=== PATIENT | female | born 1995 | race Caucasian/White ===

== ENCOUNTER 2024-10-01 17:00 | Inpatient (IN) | payer OTHER ==
[~2024-10-01] VITALS: Ht 152.4 cm; Wt 50.0 kg
[~2024-10-01 17:00] MED LIST: ACET-2247 PO; MAGN-169 PO; OLAN10TA74 PO
[2024-10-01] MEDS ORDERED: ACETAMINOPHEN 325 MG TABLET PO PRN (18:15)
[2024-10-01] MEDS: LORazepam 2 MG/ML VIAL IM ONE (19:23)
[2024-10-01] MEDS: HALOPERIDOL LACTATE 5 MG/ML VIAL IM ONE (19:25)
[2024-10-01] MEDS: DiphenhydrAMINE HCL 50 MG/ML VIAL IM ONE (19:25)
[2024-10-01] MEDS: DOCUSATE SODIUM 100 MG CAPSULE PO SCH (20:15)
[2024-10-01 20:39] LABS: COVID AG,FIA SOURCE NASAL SWAB
[2024-10-01 20:59] LABS: SARS-COV2 (COVID) ANTIGEN,FIA Negative (Negative)
[2024-10-01] MEDS: HEPARIN SODIUM,PORCINE 5,000 UNITS/ML VIAL SQ SCH (23:46)
[2024-10-02 10:16] LABS: APPEARANCE,URINE CLEAR (CLEAR); BILIRUBIN,URINE NEGATIVE (NEGATIVE); COLOR,URINE LIGHT YELLOW (YELLOW); GLUCOSE, URINE (UA) NEGATIVE (NEGATIVE); KETONES,URINE TRACE mg/dL (NEGATIVE); LEUKOCYTE ESTERASE ,URINE NEGATIVE (NEGATIVE); NITRATE,URINE NEGATIVE (NEGATIVE); OCCULT BLOOD,URINE NEGATIVE (NEGATIVE); PH,URINE 6.5 (5.0-8.0); PH,URINE DRUG SCREEN 6.5 (5.0-8.0); PROTEIN,URINE TRACE mg/dL (NEGATIVE); SPECIFIC GRAVITIY, URINE 1.024 (1.003-1.030); UROBILINOGEN,URINE <=1.0 mg/dL (<=1.0)
[2024-10-02 10:23] LABS: ALCOHOL, URINE DRUG SCREEN NEGATIVE (NEGATIVE); AMPHET/METH SCREEN,URINE NEGATIVE (NEGATIVE); BARBITURATE SCREEN, URINE NEGATIVE (NEGATIVE); BENZODIAZEPINES SCREEN,URINE NEGATIVE (NEGATIVE); CANNABINOID SCREEN,URINE NEGATIVE (NEGATIVE); METHADONE SCREEN, URINE NEGATIVE (NEGATIVE); OPIATE SCREEN,URINE NEGATIVE (NEGATIVE); PHENCYCLIDINE SCREEN,URINE NEGATIVE (NEGATIVE)
[2024-10-02 11:17] LABS: COCAINE SCREEN,URINE NEGATIVE (NEGATIVE)
[2024-10-02 13:20] LABS: BASOPHILS % (AUTO) 0.4 % (0.0-2.0); EOSINOPHILS % (AUTO) 1.9 % (1.0-6.0); HEMATOCRIT 32.1 % (36-46); LYMPHOCYTES # (AUTO) 1.2 K/uL (1.0-4.8); LYMPHOCYTES % (AUTO) 26.6 % (22.0-44.0); MEAN CORPUSCULAR HEMOGLOBIN 29.6 pg (26.0-34.0); MEAN CORPUSCULAR HGB CONC 34.2 G/dL (31.0-37.0); MEAN CORPUSCULAR VOLUME 87 fL (80-100); MONOCYTES # (AUTO) 0.3 K/uL (0.1-1.0); MONOCYTES % (AUTO) 7.3 % (2.0-9.0); NEUTROPHILS % (AUTO) 63.8 % (40.0-70.0); PLATELET COUNT (AUTO) 246 K/uL (150-450); RED BLOOD CELL COUNT(AUTO) 3.72 MIL/uL (4.00-5.20); RED CELL DISTRIBUTION WIDTH 13.1 % (11.5-14.5); WHITE BLOOD COUNT (AUTO) 4.7 K/uL (4.5-11.0)
[2024-10-02 13:28] LABS: ANION GAP 11 mmol/L (8-16); CALCIUM, TOTAL 8.6 mg/dL (8.8-10.5); CARBON DIOXIDE 25 mmol/L (22-29); CHLORIDE 105 mmol/L (98-107); CREATININE 0.74 mg/dL (0.60-1.30); GLOMERULAR FILTR. RATE CALC > 60 mL/min (>60); GLUCOSE,RANDOM 99 mg/dL (70-110); POTASSIUM 4.1 mmol/L (3.5-5.1); SODIUM SERUM 141 mmol/L (136-145); UREA NITROGEN, BLOOD 11 mg/dL (7-18)
[2024-10-02 13:39] LABS: ALANINE AMINOTRANSFERASE 15 U/L (12-78); ALCOHOL, BLOOD (SERUM) < 3 mg/dL (0-10); ALKALINE PHOSPHATASE 60 U/L (46-116); ASPARTATE AMINOTRANSFERASE 17 U/L (15-37); BILIRUBIN,TOTAL 0.2 mg/dL (0.1-1.0); TOTAL PROTEIN, SERUM 6.1 g/dL (6.4-8.2)
[2024-10-02 19:10] VITALS: BP 113/77; PULSE 97; RESP 18; TEMP 98.4; O2SAT 100
[2024-10-02] MEDS: OLANZapine 5 MG TABLET PO SCH (20:30)
[2024-10-03 07:49] VITALS: BP 110/68; PULSE 85; RESP 20; TEMP 98.2; O2SAT 99
[2024-10-03] MEDS ORDERED: OLAN5TAB52 PO (12:47)
== END 2024-10-03 16:31 | DRG 885 ==
LOC: EMS 17:00 → EDH 18:08 → 6N 21:54
PROVIDERS: ADMIT Internal Medicine; ATTEND Internal Medicine
PROC: GZ56ZZZ Individual Psychotherapy, Supportive (ICD-10-PCS; principal; 2024-10-02)
DX: F20.9 Schizophrenia, unspecified (principal); Z20.822 Contact with and (suspected) exposure to COVID-19; F41.9 Anxiety disorder, unspecified; Y93.89 Activity, other specified; Y92.89 Other specified places as the place of occurrence of the external cause; Y99.8 Other external cause status; X58.XXXA Exposure to other specified factors, initial encounter; S91.101A Unspecified open wound of right great toe without damage to nail, initial encounter
CPT/HCPCS: 80048; 80076; 80307; 81003; 83735; 85025; 99285; G0480; J1200; J1630; J1644; J2060

== ENCOUNTER 2024-11-12 18:58 | Inpatient (IN) | payer OTHER ==
[~2024-11-12] VITALS: Ht 152.4 cm; Wt 60.0 kg
[~2024-11-12 18:58] MED LIST changes: -ACET-2247 PO; -MAGN-169 PO; -OLAN10TA74 PO; +OLAN5TAB52 PO
[2024-11-13] MEDS ORDERED: ACETAMINOPHEN 325 MG TABLET PO PRN (00:15)
[2024-11-13] MEDS ORDERED: ONDANSETRON HCL 4 MG/2 ML VIAL IVP PRN (00:15)
[2024-11-13 07:47] LABS: ANION GAP 5 mmol/L (8-16); CALCIUM, TOTAL 8.3 mg/dL (8.8-10.5); CARBON DIOXIDE 25 mmol/L (22-29); CHLORIDE 110 mmol/L (98-107); CREATININE 0.66 mg/dL (0.60-1.30); GLOMERULAR FILTR. RATE CALC > 60 mL/min (>60); GLUCOSE,RANDOM 83 mg/dL (70-110); POTASSIUM 3.2 mmol/L (3.5-5.1); SODIUM SERUM 140 mmol/L (136-145); UREA NITROGEN, BLOOD 6 mg/dL (7-18)
[2024-11-13 07:51] LABS: BASOPHILS % (AUTO) 0.6 % (0.0-2.0); EOSINOPHILS % (AUTO) 1.9 % (1.0-6.0); HEMATOCRIT 30.2 % (36-46); HEMOGLOBIN 10.2 g/dL (12.0-16.0); LYMPHOCYTES # (AUTO) 1.4 K/uL (1.0-4.8); LYMPHOCYTES % (AUTO) 26.3 % (22.0-44.0); MEAN CORPUSCULAR HGB CONC 33.8 G/dL (31.0-37.0); MEAN CORPUSCULAR VOLUME 86 fL (80-100); MONOCYTES # (AUTO) 0.5 K/uL (0.1-1.0); MONOCYTES % (AUTO) 8.9 % (2.0-9.0); NEUTROPHILS # (AUTO) 3.2 K/uL (1.8-7.7); NEUTROPHILS % (AUTO) 62.3 % (40.0-70.0); PLATELET COUNT (AUTO) 234 K/uL (150-450); RED BLOOD CELL COUNT(AUTO) 3.52 MIL/uL (4.00-5.20); RED CELL DISTRIBUTION WIDTH 12.8 % (11.5-14.5); WHITE BLOOD COUNT (AUTO) 5.2 K/uL (4.5-11.0)
[2024-11-13] MEDS: HEPARIN SODIUM,PORCINE 5,000 UNITS/ML VIAL SQ SCH (08:07)
[2024-11-13] MEDS: DOCUSATE SODIUM 100 MG CAPSULE PO SCH (08:07)
[2024-11-13 08:37] VITALS: BP 119/78; PULSE 99; RESP 20; TEMP 98.4; O2SAT 100
[2024-11-13] MEDS ORDERED: POTASSIUM CHL 10 MEQ/WATER 50 ML IV PRN (11:45)
[2024-11-13] MEDS: POTASSIUM CHLORIDE 20 MEQ ER TABLET PO PRN (12:00)
[2024-11-13] MEDS: OLANZapine 5 MG TABLET PO SCH (20:09)
[2024-11-14 07:19] LABS: BASOPHILS % (AUTO) 1.1 % (0.0-2.0); EOSINOPHILS % (AUTO) 4.2 % (1.0-6.0); HEMATOCRIT 33.3 % (36-46); HEMOGLOBIN 11.3 g/dL (12.0-16.0); LYMPHOCYTES # (AUTO) 1.5 K/uL (1.0-4.8); LYMPHOCYTES % (AUTO) 36.6 % (22.0-44.0); MEAN CORPUSCULAR HEMOGLOBIN 29.3 pg (26.0-34.0); MEAN CORPUSCULAR VOLUME 86 fL (80-100); MONOCYTES # (AUTO) 0.3 K/uL (0.1-1.0); MONOCYTES % (AUTO) 6.6 % (2.0-9.0); NEUTROPHILS # (AUTO) 2.1 K/uL (1.8-7.7); NEUTROPHILS % (AUTO) 51.5 % (40.0-70.0); PLATELET COUNT (AUTO) 240 K/uL (150-450); RED BLOOD CELL COUNT(AUTO) 3.86 MIL/uL (4.00-5.20); RED CELL DISTRIBUTION WIDTH 13.1 % (11.5-14.5)
[2024-11-14] MEDS: MULTIVITAMINS WITH MINERALS, THERAPEUTIC TABLET PO SCH (08:11)
[2024-11-14 08:15] VITALS: BP 91/40; PULSE 66; RESP 19; TEMP 99; O2SAT 99
[2024-11-14 08:21] VITALS: BP 91/40; PULSE 66; RESP 19; TEMP 99; O2SAT 100
[2024-11-14 08:30] LABS: ANION GAP 10 mmol/L (8-16); CALCIUM, TOTAL 8.5 mg/dL (8.8-10.5); CARBON DIOXIDE 24 mmol/L (22-29); CHLORIDE 109 mmol/L (98-107); CREATININE 0.63 mg/dL (0.60-1.30); GLOMERULAR FILTR. RATE CALC > 60 mL/min (>60); GLUCOSE,RANDOM 81 mg/dL (70-110); POTASSIUM 3.6 mmol/L (3.5-5.1); SODIUM SERUM 143 mmol/L (136-145); UREA NITROGEN, BLOOD 7 mg/dL (7-18)
[2024-11-14 20:57] VITALS: BP 91/74; PULSE 85; RESP 18; TEMP 98.4; O2SAT 99
[2024-11-15 05:04] VITALS: BP 91/56; PULSE 66; RESP 18; TEMP 98.1; O2SAT 99
[2024-11-15 08:08] VITALS: BP 96/51; PULSE 63; RESP 18; TEMP 98.4; O2SAT 97
[2024-11-15] MEDS ORDERED: ACET-2247 PO (12:17)
== END 2024-11-15 21:36 | DRG 641 ==
LOC: EMS 18:58 → EDH 11-13 00:09 → 6S 11-13 02:40
PROVIDERS: ADMIT Internal Medicine; ATTEND Internal Medicine
PROC: GZ56ZZZ Individual Psychotherapy, Supportive (ICD-10-PCS; 2024-11-13)
PROC: GZ52ZZZ Individual Psychotherapy, Cognitive (ICD-10-PCS; principal; 2024-11-14)
DX: E87.6 Hypokalemia (principal); F41.1 Generalized anxiety disorder; F20.9 Schizophrenia, unspecified; D64.9 Anemia, unspecified; R00.0 Tachycardia, unspecified; Z91.199 Patient's noncompliance with other medical treatment and regimen due to unspecified reason; Z79.899 Other long term (current) drug therapy
CPT/HCPCS: 80048; 83735; 84703; 85025; 99285; G0480; J1644

== ENCOUNTER 2024-12-04 10:08 | Inpatient (IN) | payer OTHER ==
[~2024-12-04] VITALS: Ht 162.6 cm; Wt 70.9 kg
[~2024-12-04 10:08] MED LIST changes: +ACET-2247 PO
[2024-12-04] MEDS ORDERED: LORazepam 2 MG/ML VIAL ONE (11:18)
[2024-12-04] MEDS: LORazepam 2 MG/ML VIAL IM ONE (11:22)
[2024-12-04 12:06] LABS: PLATELET COUNT (AUTO) 262 K/uL (150-450); RED BLOOD CELL COUNT(AUTO) 3.98 MIL/uL (4.00-5.20); RED CELL DISTRIBUTION WIDTH 12.9 % (11.5-14.5); WHITE BLOOD COUNT (AUTO) 5.4 K/uL (4.5-11.0)
[2024-12-04 12:15] LABS: CALCIUM, TOTAL 8.8 mg/dL (8.8-10.5); CREATININE 0.79 mg/dL (0.60-1.30); GLOMERULAR FILTR. RATE CALC > 60 mL/min (>60); GLUCOSE,RANDOM 96 mg/dL (70-110); SODIUM SERUM 142 mmol/L (136-145); UREA NITROGEN, BLOOD 16 mg/dL (7-18)
[2024-12-04 12:31] LABS: COVID AG,FIA SOURCE NASAL SWAB
[2024-12-04 13:06] LABS: SARS-COV2 (COVID) ANTIGEN,FIA Negative (Negative)
[2024-12-04] MEDS ORDERED: BISACODYL 10 MG RECTAL RECTAL SUPPOSITORY PR PRN (15:00)
[2024-12-04] MEDS ORDERED: ONDANSETRON HCL 4 MG/2 ML VIAL IVP PRN (15:00)
[2024-12-04] MEDS ORDERED: MAGNESIUM HYDROXIDE SUSPENSION 30 ML UDCUP PO PRN (15:00)
[2024-12-04] MEDS ORDERED: ZOLPIDEM TARTRATE 5 MG TABLET PO PRN (15:00)
[2024-12-04] MEDS: HEPARIN SODIUM,PORCINE 5,000 UNITS/ML VIAL SQ SCH (15:20)
[2024-12-04 16:37] VITALS: BP 108/77; PULSE 101; RESP 19; TEMP 98.1; O2SAT 100
[2024-12-04 16:39] VITALS: BP 108/77; PULSE 101; RESP 19; TEMP 98.1; O2SAT 0
[2024-12-04 20:00] VITALS: PULSE 64; RESP 16; O2SAT 100
[2024-12-04] MEDS: DOCUSATE SODIUM 100 MG CAPSULE PO SCH (21:00)
[2024-12-05] MEDS: ACETAMINOPHEN 325 MG TABLET PO PRN (00:50)
[2024-12-05] MEDS: PANTOPRAZOLE SODIUM 40 MG DR TABLET PO SCH (07:58)
[2024-12-05 08:42] VITALS: BP 113/79; PULSE 95; RESP 18; TEMP 98.2; O2SAT 100
[2024-12-05 09:30] LABS: APPEARANCE,URINE HAZY (CLEAR); GLUCOSE, URINE (UA) NEGATIVE (NEGATIVE); LEUKOCYTE ESTERASE ,URINE TRACE (NEGATIVE); NITRATE,URINE NEGATIVE (NEGATIVE); OCCULT BLOOD,URINE NEGATIVE (NEGATIVE); SPECIFIC GRAVITIY, URINE 1.041 (1.003-1.030)
[2024-12-05 09:32] LABS: SQUAMOUS EPITHELIAL CELL,UR Many /LPF (None Seen)
[2024-12-05 22:23] VITALS: BP 95/54; PULSE 79; RESP 18; TEMP 98.1; O2SAT 99
[2024-12-06 04:56] VITALS: BP 104/62; PULSE 67; RESP 18; TEMP 97.9; O2SAT 99
[2024-12-06 07:57] VITALS: BP 112/63; PULSE 88; RESP 18; TEMP 98.1; O2SAT 98
[2024-12-06 19:43] VITALS: BP 99/71; PULSE 91; RESP 18; TEMP 98.4; O2SAT 98
[2024-12-06] MEDS: ETHYL ALCOHOL 62% ANTISEPTIC NASAL SANITIZER 0.6 ML AMPUL NASAL SCH (20:13)
[2024-12-07 08:34] VITALS: BP 97/61; PULSE 71; RESP 18; TEMP 98.1; O2SAT 98
[2024-12-07 10:26] LABS: PH,URINE DRUG SCREEN 6.5 (5.0-8.0)
[2024-12-07 10:33] LABS: ALCOHOL, URINE DRUG SCREEN NEGATIVE (NEGATIVE); AMPHET/METH SCREEN,URINE NEGATIVE (NEGATIVE); BARBITURATE SCREEN, URINE NEGATIVE (NEGATIVE); CANNABINOID SCREEN,URINE NEGATIVE (NEGATIVE); COCAINE SCREEN,URINE NEGATIVE (NEGATIVE); METHADONE SCREEN, URINE NEGATIVE (NEGATIVE)
[2024-12-07] MEDS: DIVALPROEX SODIUM 500 MG DR TABLET PO SCH (21:00)
[2024-12-08 04:45] VITALS: BP 93/60; PULSE 69; RESP 18; TEMP 97.9; O2SAT 97
[2024-12-08 08:13] VITALS: BP 101/59; PULSE 66; RESP 18; TEMP 97.9; O2SAT 97
[2024-12-08 19:20] VITALS: BP 120/91; PULSE 84; RESP 18; TEMP 98.2; O2SAT 99
[2024-12-09 06:53] VITALS: BP 101/71; PULSE 88; RESP 18; TEMP 98; O2SAT 100
[2024-12-09 16:29] VITALS: BP 106/74; PULSE 86; RESP 18; TEMP 97.7; O2SAT 100
[2024-12-10 06:35] VITALS: BP 91/49; PULSE 67; RESP 18; TEMP 97.9; O2SAT 97
[2024-12-10 08:27] VITALS: BP 100/56; PULSE 83; RESP 18; TEMP 98.1; O2SAT 98
[2024-12-10 20:03] VITALS: BP 123/77; PULSE 86; RESP 20; TEMP 98.1; O2SAT 99
[2024-12-11 08:00] VITALS: BP 117/72; PULSE 78; RESP 18; TEMP 97.7; O2SAT 100
[2024-12-12 08:02] VITALS: BP 92/70; PULSE 86; RESP 14; TEMP 97.9; O2SAT 99
[2024-12-12] MEDS ORDERED: DIVA-112 PO (10:50)
[2024-12-12] MEDS ORDERED: OLAN10TA74 PO (10:51)
[2024-12-12] MEDS ORDERED: HYDR-4808 PO (10:52)
[2024-12-12 19:42] VITALS: BP 100/76; PULSE 94; RESP 18; TEMP 98.2; O2SAT 99
== END 2024-12-12 20:44 | DRG 885 ==
LOC: EMS 10:17 → CMPBEDREQ 14:23 → EDBEDREQSVC 14:31 → EDBEDREQ 14:39 → EDH 14:40 → 6S 16:16
PROVIDERS: ADMIT Internal Medicine; ATTEND Internal Medicine
DX: F25.0 Schizoaffective disorder, bipolar type (principal); R45.851 Suicidal ideations; D64.9 Anemia, unspecified; R51.9 Headache, unspecified; Z20.822 Contact with and (suspected) exposure to COVID-19; F41.9 Anxiety disorder, unspecified; Z91.51 Personal history of suicidal behavior
CPT/HCPCS: 70450; 80048; 80307; 81001; 85025; 87081; 96372; 99285; G0480; J1200; J1630; J1644; J2060

== ENCOUNTER 2025-02-14 13:16 | Inpatient (IN) | payer OTHER ==
[~2025-02-14] VITALS: Ht 149.9 cm; Wt 50.0 kg
[~2025-02-14 13:16] MED LIST changes: +DIVA-112 PO; +HYDR-4808 PO; +OLAN10TA74 PO; -OLAN5TAB52 PO
[2025-02-14 14:27] LABS: PLATELET COUNT (AUTO) 261 K/uL (150-450); RED BLOOD CELL COUNT(AUTO) 4.32 MIL/uL (4.00-5.20); RED CELL DISTRIBUTION WIDTH 13.7 % (11.5-14.5); WHITE BLOOD COUNT (AUTO) 5.5 K/uL (4.5-11.0)
[2025-02-14 14:31] LABS: COVID AG,FIA SOURCE NASAL SWAB
[2025-02-14 14:31] LABS: CALCIUM, TOTAL 8.8 mg/dL (8.8-10.5); CREATININE 0.59 mg/dL (0.60-1.30); GLOMERULAR FILTR. RATE CALC > 60 mL/min (>60); GLUCOSE,RANDOM 94 mg/dL (70-110); SODIUM SERUM 137 mmol/L (136-145); UREA NITROGEN, BLOOD 12 mg/dL (7-18)
[2025-02-14 15:24] LABS: SARS-COV2 (COVID) ANTIGEN,FIA Negative (Negative)
[2025-02-14] MEDS: ACETAMINOPHEN 325 MG TABLET PO ONE (15:33)
[2025-02-14] MEDS ORDERED: ONDANSETRON HCL 4 MG/2 ML VIAL IVP PRN (17:15)
[2025-02-14] MEDS: DOCUSATE SODIUM 100 MG CAPSULE PO SCH (20:37)
[2025-02-14 21:30] LABS: PH,URINE DRUG SCREEN 8.0 (5.0-8.0)
[2025-02-14 21:36] LABS: ALCOHOL, URINE DRUG SCREEN NEGATIVE (NEGATIVE); AMPHET/METH SCREEN,URINE NEGATIVE (NEGATIVE); BARBITURATE SCREEN, URINE NEGATIVE (NEGATIVE); CANNABINOID SCREEN,URINE NEGATIVE (NEGATIVE); COCAINE SCREEN,URINE NEGATIVE (NEGATIVE); METHADONE SCREEN, URINE NEGATIVE (NEGATIVE)
[2025-02-14] MEDS: HEPARIN SODIUM,PORCINE 5,000 UNITS/ML VIAL SQ SCH (23:19)
[2025-02-15] MEDS: ACETAMINOPHEN 325 MG TABLET PO PRN (00:33)
[2025-02-15 07:05] LABS: CALCIUM, TOTAL 8.1 mg/dL (8.8-10.5); CREATININE 0.60 mg/dL (0.60-1.30); GLOMERULAR FILTR. RATE CALC > 60 mL/min (>60); GLUCOSE,RANDOM 123 mg/dL (70-110); SODIUM SERUM 134 mmol/L (136-145); UREA NITROGEN, BLOOD 12 mg/dL (7-18)
[2025-02-15 07:11] LABS: PLATELET COUNT (AUTO) 251 K/uL (150-450); RED BLOOD CELL COUNT(AUTO) 3.94 MIL/uL (4.00-5.20); RED CELL DISTRIBUTION WIDTH 13.8 % (11.5-14.5); WHITE BLOOD COUNT (AUTO) 4.5 K/uL (4.5-11.0)
[2025-02-15 11:52] VITALS: BP 102/57; PULSE 74; RESP 18; TEMP 97.7; O2SAT 100
[2025-02-15 19:47] VITALS: BP 96/62; PULSE 69; RESP 18; TEMP 98.4; O2SAT 99
[2025-02-16 04:49] VITALS: BP 100/59; PULSE 61; RESP 18; TEMP 98.4; O2SAT 98
[2025-02-16 08:01] VITALS: BP 99/54; PULSE 63; RESP 18; TEMP 98.4; O2SAT 100
[2025-02-16 20:14] VITALS: BP 96/58; PULSE 81; RESP 18; TEMP 98.6; O2SAT 97
[2025-02-17 05:03] VITALS: BP 101/56; PULSE 63; RESP 18; TEMP 98.1; O2SAT 99
[2025-02-17 08:28] VITALS: BP 97/54; PULSE 67; RESP 18; TEMP 98.2; O2SAT 98
[2025-02-17] MEDS ORDERED: TRAZ-252 PO (14:50)
== END 2025-02-17 19:30 | DRG 885 ==
LOC: EMS 13:17 → EDH 17:09 → 6S 02-15 11:30
PROVIDERS: ADMIT Internal Medicine; ATTEND Internal Medicine
DX: F20.0 Paranoid schizophrenia (principal); F41.9 Anxiety disorder, unspecified; Z20.822 Contact with and (suspected) exposure to COVID-19
CPT/HCPCS: 80048; 80307; 83735; 84703; 85025; 99285; G0378; G0480; J1644

== ENCOUNTER 2025-03-28 18:56 | Inpatient (IN) | payer OTHER ==
[~2025-03-28] VITALS: Ht 162.6 cm; Wt 61.8 kg
[~2025-03-28 18:56] MED LIST changes: +TRAZ-252 PO
[2025-03-28 19:43] LABS: PLATELET COUNT (AUTO) 277 K/uL (150-450); RED BLOOD CELL COUNT(AUTO) 4.03 MIL/uL (4.00-5.20); RED CELL DISTRIBUTION WIDTH 14.0 % (11.5-14.5); WHITE BLOOD COUNT (AUTO) 5.2 K/uL (4.5-11.0)
[2025-03-28 19:49] LABS: CALCIUM, TOTAL 8.3 mg/dL (8.8-10.5); CREATININE 0.71 mg/dL (0.60-1.30); GLOMERULAR FILTR. RATE CALC > 60 mL/min (>60); GLUCOSE,RANDOM 107 mg/dL (70-110); SODIUM SERUM 137 mmol/L (136-145); UREA NITROGEN, BLOOD 10 mg/dL (7-18)
[2025-03-28 19:55] LABS: ASPARTATE AMINOTRANSFERASE 14 U/L (15-37); TOTAL PROTEIN, SERUM 6.8 g/dL (6.4-8.2)
[2025-03-28 19:58] LABS: ALCOHOL, BLOOD (SERUM) < 3 mg/dL (0-10)
[2025-03-28] MEDS ORDERED: ZOLPIDEM TARTRATE 5 MG TABLET PO PRN (20:30)
[2025-03-28] MEDS ORDERED: MAGNESIUM HYDROXIDE SUSPENSION 30 ML UDCUP PO PRN (20:30)
[2025-03-29 10:28] LABS: COVID AG,FIA SOURCE NASAL SWAB
[2025-03-29 10:49] LABS: APPEARANCE,URINE CLEAR (CLEAR); GLUCOSE, URINE (UA) NEGATIVE (NEGATIVE); LEUKOCYTE ESTERASE ,URINE NEGATIVE (NEGATIVE); NITRATE,URINE NEGATIVE (NEGATIVE); OCCULT BLOOD,URINE NEGATIVE (NEGATIVE); PH,URINE DRUG SCREEN 6.5 (5.0-8.0); SPECIFIC GRAVITIY, URINE 1.021 (1.003-1.030)
[2025-03-29 10:54] LABS: AMPHET/METH SCREEN,URINE NEGATIVE (NEGATIVE); BARBITURATE SCREEN, URINE NEGATIVE (NEGATIVE); CANNABINOID SCREEN,URINE NEGATIVE (NEGATIVE); COCAINE SCREEN,URINE NEGATIVE (NEGATIVE); METHADONE SCREEN, URINE NEGATIVE (NEGATIVE)
[2025-03-29 10:56] LABS: ALCOHOL, URINE DRUG SCREEN NEGATIVE (NEGATIVE)
[2025-03-29 11:06] LABS: SARS-COV2 (COVID) ANTIGEN,FIA Negative (Negative)
[2025-03-29] MEDS ORDERED: INFLUENZA VIRUS VACCINE TVS (6MO+) 2025-26/PF 45 MCG/0.5 ML SYRINGE IM. ONE (13:00)
[2025-03-29] MEDS: ACETAMINOPHEN 325 MG TABLET PO PRN (16:05)
[2025-03-29 19:52] VITALS: BP 99/63; PULSE 68; RESP 17; TEMP 98.6; O2SAT 99
[2025-03-30 03:41] VITALS: BP 112/61; PULSE 71; RESP 17; TEMP 97.3; O2SAT 99
[2025-03-30 08:40] VITALS: BP 101/56; PULSE 70; RESP 18; TEMP 97.7; O2SAT 98
[2025-03-30 16:23] VITALS: BP 101/59; PULSE 80; RESP 18; TEMP 98.2; O2SAT 97
[2025-03-30 20:00] VITALS: BP 104/59; PULSE 82; RESP 20; TEMP 98.1; O2SAT 98
[2025-03-30] MEDS: PROPRANOLOL HCL 10 MG TABLET PO SCH (20:04)
[2025-03-30] MEDS: BENZTROPINE MESYLATE 1 MG TABLET PO SCH (20:04)
[2025-03-31 09:05] VITALS: BP 99/56; PULSE 66; RESP 16; TEMP 98; O2SAT 96
[2025-03-31 20:00] VITALS: BP 97/62; PULSE 76; RESP 20; TEMP 97.5; O2SAT 99
[2025-04-01 05:24] VITALS: BP 97/56; PULSE 73; RESP 20; TEMP 97.9; O2SAT 98
[2025-04-01 08:03] VITALS: BP 94/63; PULSE 77; RESP 18; TEMP 98.1; O2SAT 97
[2025-04-01] MEDS ORDERED: BENZ-247 PO (13:16)
[2025-04-01] MEDS ORDERED: HALO2 PO ×2 (13:16→13:20)
== END 2025-04-01 16:30 | DRG 885 ==
LOC: EMS 18:56 → EDH 20:26 → 6N 03-29 11:59
PROVIDERS: ADMIT Internal Medicine; ATTEND Internal Medicine
PROC: GZ58ZZZ Individual Psychotherapy, Cognitive-Behavioral (ICD-10-PCS; principal; 2025-03-30)
PROC: GZ56ZZZ Individual Psychotherapy, Supportive (ICD-10-PCS; 2025-03-30)
DX: F20.0 Paranoid schizophrenia (principal); D64.9 Anemia, unspecified; I10 Essential (primary) hypertension; Z20.822 Contact with and (suspected) exposure to COVID-19; F41.9 Anxiety disorder, unspecified; Z91.148 Patient's other noncompliance with medication regimen for other reason
CPT/HCPCS: 80048; 80076; 80307; 81003; 84703; 85025; 99285; G0378; G0480